=== PATIENT | male | born 1970 | race Caucasian/White ===

== ENCOUNTER 2017-09-27 20:28 | Emergency (ER) | payer OTHER ==
[~2017-09-27] VITALS: Ht 185.4 cm; Wt 106.4 kg
[~2017-09-27 20:28] MED LIST: CHLO25CA10 PO; PROC-8 PO
[2017-09-27 20:47] VITALS: BP 140/89
[2017-09-27] MEDS ORDERED: GABA-532 PO (21:39)
== END 2017-09-27 21:46 | disposition home or self-care (01) ==
LOC: ER 20:29
DX: Z02.89 Encounter for other administrative examinations (principal); F10.20 Alcohol dependence, uncomplicated; F17.200 Nicotine dependence, unspecified, uncomplicated
CPT/HCPCS: 99284